=== PATIENT | female | born 1995 | race Hispanic/Latino ===

== ENCOUNTER → 2016-11-25 | Outpatient (REF) | payer OTHER | LOC: M LAB REF 16:14 | PROVIDERS: ATTEND Physician Assistant | DX: J02.9 Acute pharyngitis, unspecified (principal) ==

== ENCOUNTER 2017-08-27 15:55 | Emergency (ER) | payer OTHER ==
[2017-08-27] MEDS: NS 1,000 ML IV (18:13)
[2017-08-27] MEDS: diphenhydrAMINE INJ 50MG/ML VIAL (J1200) IV (18:14)
[2017-08-27] MEDS: KETOROLAC 30 MG/ML VIAL (J1885) IV (18:14)
[2017-08-27] MEDS: METOCLOPRAMIDE INJ 10MG/2ML VIAL (J2765) IV (18:14)
[2017-08-27 18:48] LABS: BASO % 0.1 % (0.0-1.0); EOS # 0.1 10^3/uL (0.0-0.50); EOS % 0.5 % (0.0-3.0); HEMATOCRIT 42.3 % (36.0-47.0); HEMOGLOBIN 14.3 g/dl (12.0-16.0); IMMATURE GRANULOCYTE % 0.4 % (0-3.0); LYMPH # 1.6 10^3/uL (1.5-6.5); LYMPH % 15.2 % (24.0-44.0); MEAN CORPUSCULAR HEMOGLOBIN 29.1 pg (27.0-33.0); MEAN CORPUSCULAR HGB CONC 33.8 g/dl (32.0-36.5); MONO # 0.3 10^3/uL (0.0-0.8); NEUTROPHILS # 8.4 10^3/uL (1.8-7.7); NEUTROPHILS % 80.8 % (36.0-66.0); PLATELET COUNT, AUTOMATED 293 10^3/uL (150-450); RED BLOOD COUNT 4.92 10^6/uL (4.00-5.40); RED CELL DISTRIBUTION WIDTH 13.2 % (11.5-14.5); WHITE BLOOD COUNT 10.3 10^3/uL (4.0-10.0)
[2017-08-27 19:20] LABS: ANION GAP 7 MEQ/L (8-16); BLOOD UREA NITROGEN 10 MG/DL (7-18); C REACTIVE PROTEIN QUANTITATIV 0.78 MG/DL (0.00-0.30); CALCIUM LEVEL 9.3 MG/DL (8.5-10.1); CARBON DIOXIDE LEVEL 25 MEQ/L (21-32); CHLORIDE LEVEL 105 MEQ/L (98-107); CREATININE FOR GFR 0.67 MG/DL (0.55-1.30); GLOMERULAR FILTRATION RATE > 60.0 (>60); GLUCOSE, FASTING 89 MG/DL (70-100); SODIUM LEVEL 137 MEQ/L (136-145)
[2017-08-27 19:40] LABS: ERYTHROCYTE SEDIMENTATION RATE 6 mm/hr (0-20)
[2017-08-31 00:06] LABS: Lyme Disease IgG/IgM Antibodie <0.91 ISR (0.00-0.90); Lyme Disease IgM Ab Quantitati <0.80 index (0.00-0.79)
== END 2017-08-27 20:55 | disposition home or self-care (01) ==
LOC: M ED 15:55
DX: G43.909 Migraine, unspecified, not intractable, without status migrainosus (principal); F17.210 Nicotine dependence, cigarettes, uncomplicated
CPT/HCPCS: J1200

== ENCOUNTER 2018-06-07 15:18 | Emergency (ER) | payer OTHER | END 2018-06-07 17:06 | disposition left against medical advice (07) | LOC: M ED 15:18 | DX: Z77.21 Contact with and (suspected) exposure to potentially hazardous body fluids (principal); Z53.21 Procedure and treatment not carried out due to patient leaving prior to being seen by health care provider ==

== ENCOUNTER → 2020-01-11 | Outpatient (REF) | payer BC ==
[~2020-01-11] MED LIST: AMOX875T2 PO; ONDA-83 PO
== END ==
LOC: M WUC 12:16
PROVIDERS: ATTEND Physician Assistant
DX: J02.9 Acute pharyngitis, unspecified (principal)

== ENCOUNTER 2020-01-15 19:08 | Emergency (ER) | payer OTHER, BC ==
[~2020-01-15] VITALS: Ht 162.6 cm; Wt 78.0 kg
[2020-01-15 19:08] VITALS: BP 139/86
[2020-01-15] MEDS ORDERED: IBUPROFEN 600MG TAB PO ONE (20:30)
--- NOTE | 2020-01-16 08:17 | REP ---
REASON FOR EXAM: Trauma. COMPARISON: No priors. FINDINGS: No acute fracture or destructive osseous lesion. The mortise is intact. Electronically Signed by Dean Rdz DO 01/16/2020 11:38 A
== END 2020-01-15 20:55 | disposition home or self-care (01) ==
LOC: M ED 19:08
DX: S93.401A Sprain of unspecified ligament of right ankle, initial encounter (principal); X50.9XXA Other and unspecified overexertion or strenuous movements or postures, initial encounter; Y92.89 Other specified places as the place of occurrence of the external cause; Y99.0 Civilian activity done for income or pay; F17.210 Nicotine dependence, cigarettes, uncomplicated

== ENCOUNTER → 2020-07-03 | Outpatient (CLI) | payer SELFPAY ==
[~2020-07-03] MED LIST changes: +ESTA0.25 PO
== END ==
LOC: M LABSMTC 14:12
PROVIDERS: ATTEND Pediatrics
DX: Z20.828 Contact with and (suspected) exposure to other viral communicable diseases (principal)

== ENCOUNTER 2021-09-10 17:37 | Emergency (ER) | payer BC ==
[~2021-09-10] VITALS: Ht 160 cm; Wt 80.4 kg
[2021-09-10] MEDS ORDERED: NAPROXEN 250 MG TAB PO ONE (19:30)
[2021-09-10 19:52] LABS: BASO % 0.4 % (0.0-1.0); EOS # 0.1 10^3/uL (0.0-0.5); EOS % 1.8 % (0.0-3.0); HEMOGLOBIN 12.3 g/dl (12.0-15.5); LYMPH # 2.4 10^3/uL (1.5-5.0); LYMPH % 41.7 % (24.0-44.0); MEAN CORPUSCULAR HEMOGLOBIN 28.9 pg (27.0-33.0); MEAN CORPUSCULAR HGB CONC 33.2 g/dl (32.0-36.5); MEAN CORPUSCULAR VOLUME 87.1 fl (80.0-96.0); MONO # 0.4 10^3/uL (0.0-0.8); MONO % 6.3 % (2.0-8.0); NEUTROPHILS # 2.8 10^3/uL (1.5-8.5); NEUTROPHILS % 49.4 % (36.0-66.0); PLATELET COUNT, AUTOMATED 258 10^3/uL (150-450); RED BLOOD COUNT 4.25 10^6/uL (4.00-5.40); WHITE BLOOD COUNT 5.7 10^3/uL (4.0-10.0)
[2021-09-10 20:22] LABS: CK-MB VALUE MASS < 1.0 NG/ML (<3.6); CPK CREATINE PHOSPHOKINASE 171 U/L (26-192); MB/CK RELATIVE INDEX 0.58 (< OR =4)
[2021-09-10] MEDS ORDERED: NAPR-837 PO (21:24)
[2021-09-10 21:32] VITALS: BP 128/84
== END 2021-09-10 21:33 | disposition home or self-care (01) ==
LOC: M ED 17:37
DX: R07.89 Other chest pain (principal)

== ENCOUNTER → 2023-09-02 | Outpatient (REF) | payer BC ==
[~2023-09-02] MED LIST changes: +NAPR-837 PO
== END ==
LOC: M LAB REF 21:12
PROVIDERS: ATTEND Physician Assistant
DX: J02.9 Acute pharyngitis, unspecified (principal)

== ENCOUNTER 2023-10-12 04:28 | Emergency (ER) | payer BC, SELFPAY ==
[~2023-10-12] VITALS: Ht 162.6 cm; Wt 97.9 kg
[2023-10-12] MEDS: diazePAM 5MG TABLET PO ONE (07:27)
[2023-10-12] MEDS: LIDOCAINE 5% (LIDODERM) PATCH TD ONE (07:28)
[2023-10-12] MEDS ORDERED: LIDO5DIS41 TD (08:02)
[2023-10-12] MEDS ORDERED: CYCL-707 PO (08:02)
[2023-10-12 08:57] VITALS: BP 130/59; TEMP 98.1; O2SAT 100
== END 2023-10-12 09:00 | disposition home or self-care (01) ==
LOC: M ED 04:28
DX: S13.4XXA Sprain of ligaments of cervical spine, initial encounter (principal); Y92.9 Unspecified place or not applicable; Y93.9 Activity, unspecified; Y99.9 Unspecified external cause status; F41.9 Anxiety disorder, unspecified; F32.A Depression, unspecified; F17.290 Nicotine dependence, other tobacco product, uncomplicated; Z79.899 Other long term (current) drug therapy

== ENCOUNTER → 2024-03-21 | Outpatient (REF) | payer BC ==
[~2024-03-21] MED LIST changes: +CYCL-707 PO; +LIDO5DIS41 TD
== END ==
LOC: M LAB REF 16:19
PROVIDERS: ATTEND Physician Assistant Medical
DX: J02.9 Acute pharyngitis, unspecified (principal)

== ENCOUNTER 2024-05-08 13:19 | Emergency (ER) | payer BC ==
[~2024-05-08] VITALS: Ht 160 cm; Wt 88.0 kg
[2024-05-08] MEDS ORDERED: VENL150C43 (13:25)
[2024-05-08 14:34] LABS: BASO % 0.3 % (0.0-1.0); EOS % 0.1 % (0.0-3.0); HEMATOCRIT 37.4 % (36.0-47.0); HEMOGLOBIN 12.5 g/dl (12.0-15.5); LYMPH # 0.9 10^3/uL (1.5-5.0); LYMPH % 8.6 % (24.0-44.0); MEAN CORPUSCULAR HEMOGLOBIN 29.4 pg (27.0-33.0); MEAN CORPUSCULAR HGB CONC 33.4 g/dl (32.0-36.5); MONO # 0.4 10^3/uL (0.0-0.8); MONO % 3.6 % (2.0-8.0); NEUTROPHILS # 9.2 10^3/uL (1.5-8.5); NEUTROPHILS % 87.1 % (36.0-66.0); PLATELET COUNT, AUTOMATED 335 10^3/uL (150-450); RED BLOOD COUNT 4.25 10^6/uL (4.00-5.40); WHITE BLOOD COUNT 10.5 10^3/uL (4.0-10.0)
[2024-05-08 14:56] LABS: LIPASE 47 U/L (12-53)
[2024-05-08 14:58] LABS: ALBUMIN 4.2 G/DL (3.2-5.2); ALKALINE PHOSPHATASE 61 U/L (35-104); ALT/SGPT 25 U/L (7.0-40); AST/SGOT 15 U/L (<34); BILIRUBIN,DIRECT < 0.1 MG/DL (<0.4); BILIRUBIN,TOTAL 0.3 MG/DL (0.3-1.2); BLOOD UREA NITROGEN 14 MG/DL (9-23); CALCIUM LEVEL 9.7 MG/DL (8.5-10.1); CARBON DIOXIDE LEVEL 25 MMOL/L (20-31); CHLORIDE LEVEL 104 MMOL/L (98-107); CREATININE FOR GFR 0.65 MG/DL (0.55-1.30); GLOMERULAR FILTRATION RATE > 60.0 (>60); GLUCOSE, FASTING 83 MG/DL (60-100); POTASSIUM SERUM 3.8 MMOL/L (3.5-5.1); SODIUM LEVEL 135 MMOL/L (136-145); TOTAL PROTEIN 7.5 G/DL (5.7-8.2)
[2024-05-08 14:59] LABS: HCG, SERUM QUALITATIVE NEGATIVE (NEGATIVE)
[2024-05-08 16:18] VITALS: BP 127/78; TEMP 98.3; O2SAT 100
[2024-05-08] MEDS: MAGNESIUM CITRATE 300ML BTL PO ONE (16:20)
== END 2024-05-08 16:23 | disposition home or self-care (01) ==
LOC: M ED 13:19
DX: K59.00 Constipation, unspecified (principal); Z79.899 Other long term (current) drug therapy